=== PATIENT | female | born 1995 | race Caucasian/White ===

== ENCOUNTER 2016-12-30 22:54 | Emergency (ER) | payer OTHER ==
[~2016-12-30] VITALS: Ht 154.9 cm; Wt 109.1 kg
[2016-12-30] MEDS ORDERED: ONDANSETRON ODT 4 MG PO ONE (23:30)
[2016-12-30 23:52] LABS: BLOOD UREA NITROGEN 9 mg/dL (7-18)
[2016-12-30 23:54] LABS: PATH.CAST-FLAG NOT PRESENT; SPERM-FLAG NOT PRESENT; SRC-FLAG NOT PRESENT; XTAL-FLAG NOT PRESENT; YLC-FLAG NOT PRESENT
[2016-12-30 23:56] LABS: HCG UR OBC PASS
[2016-12-31] MEDS ORDERED: ONDANSETRON ODT 4 MG ONE (01:19)
[2016-12-31 01:32] VITALS: BP 127/81
== END 2016-12-31 01:34 | disposition home or self-care (01) ==
LOC: ED 12-31 01:28
DX: N30.01 Acute cystitis with hematuria (principal); B34.9 Viral infection, unspecified; R50.9 Fever, unspecified
CPT/HCPCS: 36415; 71020; 80048; 81001; 81025; 82040; 84703; 85025; 87086; 99285; Q0162